=== PATIENT | male | born 1965 | race Caucasian/White ===

== ENCOUNTER 2017-08-12 14:21 | Emergency (ER) | payer OTHER | END 2017-08-12 15:00 | disposition home or self-care (01) | LOC: E/R 15:00 | DX: B34.9 Viral infection, unspecified (principal); H10.9 Unspecified conjunctivitis; J34.89 Other specified disorders of nose and nasal sinuses; I50.9 Heart failure, unspecified; N17.9 Acute kidney failure, unspecified | CPT/HCPCS: 99283 ==

== ENCOUNTER 2018-02-18 21:36 | Emergency (ER) | payer OTHER ==
[2018-02-18] MEDS ORDERED: CEFTRIAXONE 1 GM/50 ML (PMX) 50 ML IVPB (22:30)
[2018-02-18 22:34] LABS: ADD MAN DIFF? NO
[2018-02-18] MEDS: IBUPROFEN 600 MG TAB PO (22:42)
[2018-02-18] MEDS: SOD CHLORIDE 0.9% 1,000 ML IV (22:43)
[2018-02-18 22:44] LABS: WHITE BLOOD COUNT 10.4 10^3/ul (4.8-10.8)
[2018-02-18 22:44] LABS: BASOPHILS % 0.4 % (0.0-2.0); EOSINOPHILS # 0.3 10^3/ul (0.0-0.5); EOSINOPHILS % 3.3 % (0.0-7.0); HEMATOCRIT 42.1 % (42.0-52.0); HEMOGLOBIN 14.1 g/dl (14.0-18.0); LYMPHOCYTES # 1.4 10^3/ul (0.8-2.9); LYMPHOCYTES % 13.1 % (15.0-51.0); MEAN CORPUSCULAR HEMOGLOBIN 31.6 pg (29.0-33.0); MEAN CORPUSCULAR HGB CONC 33.5 g/dl (32.0-37.0); MEAN CORPUSCULAR VOLUME 94.4 fl (82.0-101.0); MEAN PLATELET VOLUME 9.6 fl (7.4-10.4); MONOCYTE # 1.1 10^3/ul (0.3-0.9); MONOCYTES % 10.3 % (0.0-11.0); NEUTROPHIL # 7.5 10^3/ul (1.6-7.5); PLATELET COUNT 281 10^3/UL (140-415); RED BLOOD COUNT 4.46 10^6/ul (4.70-6.10); RED CELL DISTRIBUTION WIDTH 13.2 % (11.5-14.5)
[2018-02-18] MEDS: CEFTRIAXONE 2 GM/50 ML (PMX) 50 ML IVPB (22:51)
[2018-02-18 22:57] LABS: LACTIC ACID 0.9 mmol/L (0.5-2.0)
[2018-02-18 22:59] LABS: ALANINE AMINOTRANSFERASE 40 IU/L (13-69); ALBUMIN 3.5 g/dl (3.3-4.9); ALBUMIN/GLOBULIN RATIO 0.85; ALKALINE PHOSPHATASE 109 IU/L (42-121); ANION GAP 8 (5-13); ASPARTATE AMINO TRANSFERASE 34 IU/L (15-46); BILIRUBIN,INDIRECT 2.1 mg/dl (0-1.1); BILIRUBIN,TOTAL 2.1 mg/dl (0.2-1.3); BLOOD UREA NITROGEN 26 mg/dl (7-20); CALCIUM 9.4 mg/dl (8.4-10.2); CARBON DIOXIDE 25 mmol/L (21-31); CHLORIDE 105 mmol/L (97-110); CREATININE 1.62 mg/dl (0.61-1.24); GLUCOSE 96 mg/dl (70-220); LIPASE 77 U/L (23-300); POTASSIUM 4.6 mmol/L (3.5-5.1); SODIUM 138 mmol/L (135-144); TOTAL PROTEIN 7.6 g/dl (6.1-8.1)
== END 2018-02-18 23:45 | disposition home or self-care (01) ==
LOC: E/R 21:36
DX: L03.317 Cellulitis of buttock (principal); E66.01 Morbid (severe) obesity due to excess calories
CPT/HCPCS: 36415; 80053; 83605; 83690; 85025; 96374; 99284-25

== ENCOUNTER 2018-03-02 09:57 | Emergency (ER) | payer OTHER ==
[2018-03-02 11:16] LABS: ADD MAN DIFF? NO
[2018-03-02 11:18] LABS: BASOPHIL # 0.1 10^3/ul (0.0-0.1); BASOPHILS % 0.7 % (0.0-2.0); EOSINOPHILS # 0.3 10^3/ul (0.0-0.5); EOSINOPHILS % 1.8 % (0.0-7.0); HEMATOCRIT 42.6 % (42.0-52.0); HEMOGLOBIN 14.4 g/dl (14.0-18.0); LYMPHOCYTES # 1.1 10^3/ul (0.8-2.9); LYMPHOCYTES % 6.8 % (15.0-51.0); MEAN CORPUSCULAR HEMOGLOBIN 31.5 pg (29.0-33.0); MEAN CORPUSCULAR HGB CONC 33.8 g/dl (32.0-37.0); MEAN CORPUSCULAR VOLUME 93.2 fl (82.0-101.0); MEAN PLATELET VOLUME 9.1 fl (7.4-10.4); MONOCYTE # 1.4 10^3/ul (0.3-0.9); MONOCYTES % 9.4 % (0.0-11.0); NEUTROPHIL # 12.3 10^3/ul (1.6-7.5); NEUTROPHILS % 80.1 % (39.0-77.0); PLATELET COUNT 351 10^3/UL (140-415); RED BLOOD COUNT 4.57 10^6/ul (4.70-6.10); RED CELL DISTRIBUTION WIDTH 13.3 % (11.5-14.5)
[2018-03-02 11:18] LABS: WHITE BLOOD COUNT 15.3 10^3/ul (4.8-10.8)
[2018-03-02] MEDS: PIPER-TAZO 3.375 GM IV (PMX) 100 ML IVPB (11:22)
[2018-03-02] MEDS: FENTAnyl 50 MCG/ML VIAL IV (11:22)
[2018-03-02] MEDS: ONDANSETRON 4 MG INJ IV (11:22)
[2018-03-02 11:40] LABS: LACTIC ACID 1.9 mmol/L (0.5-2.0)
[2018-03-02 11:41] LABS: ANION GAP 12 (5-13); CARBON DIOXIDE 19 mmol/L (21-31); CHLORIDE 109 mmol/L (97-110); Estimated GFR 19 mL/min (>60); POTASSIUM 5.2 mmol/L (3.5-5.1); SODIUM 140 mmol/L (135-144)
[2018-03-02 11:44] LABS: ALANINE AMINOTRANSFERASE 55 IU/L (13-69); ALBUMIN 3.8 g/dl (3.3-4.9); ALBUMIN/GLOBULIN RATIO 0.92; ALKALINE PHOSPHATASE 134 IU/L (42-121); ASPARTATE AMINO TRANSFERASE 46 IU/L (15-46); BILIRUBIN,INDIRECT 1.1 mg/dl (0-1.1); BILIRUBIN,TOTAL 1.1 mg/dl (0.2-1.3); BLOOD UREA NITROGEN 52 mg/dl (7-20); CALCIUM 9.2 mg/dl (8.4-10.2); CREATININE 3.43 mg/dl (0.61-1.24); GLUCOSE 101 mg/dl (70-220); TOTAL PROTEIN 7.9 g/dl (6.1-8.1)
[2018-03-02 11:45] LABS: INR 1.16; PT RATIO 1.2
[2018-03-02 11:46] LABS: PARTIAL THROMBOPLASTIN TIME 30.7 Sec (23.0-35.0)
[2018-03-02] MEDS: VANCOMYCIN 1 GM (PMX) 250 ML IVPB (12:37)
== END 2018-03-02 15:22 | disposition home or self-care (01) ==
LOC: E/R 15:22
DX: L03.317 Cellulitis of buttock (principal); I50.9 Heart failure, unspecified; M79.662 Pain in left lower leg
CPT/HCPCS: 80053; 83605; 85025; 85610; 85730; 87040; 93005; 96374; 96375; 99284-25

== ENCOUNTER 2018-03-03 16:11 | Inpatient (IN) | payer OTHER ==
[2018-03-03] MEDS ORDERED: ONDANSETRON 4 MG INJ IV (18:30)
[2018-03-03] MEDS ORDERED: MAGNESIUM HYDROXIDE 30ML CUP PO (18:30)
[2018-03-03] MEDS ORDERED: VANCOMYCIN IV PER PHARMACY XX (18:30)
[2018-03-03] MEDS ORDERED: NACL 0.9% 3 ML SYG IV (18:30)
[2018-03-03] MEDS: SOD CHLORIDE 0.9% 1,000 ML IV ×2 (19:58→21:00)
[2018-03-03] MEDS: morphine 2 MG INJ IV (22:10)
[2018-03-04] MEDS: morphine 2 MG INJ IV ×5 (00:50→23:04)
[2018-03-04 05:53] LABS: WHITE BLOOD COUNT 8.7 10^3/ul (4.8-10.8)
[2018-03-04 05:53] LABS: ADD MAN DIFF? NO; BASOPHIL # 0.1 10^3/ul (0.0-0.1); EOSINOPHILS # 0.4 10^3/ul (0.0-0.5); EOSINOPHILS % 4.6 % (0.0-7.0); HEMATOCRIT 38.6 % (42.0-52.0); HEMOGLOBIN 12.6 g/dl (14.0-18.0); LYMPHOCYTES # 1.6 10^3/ul (0.8-2.9); LYMPHOCYTES % 18.1 % (15.0-51.0); MEAN CORPUSCULAR HEMOGLOBIN 31.6 pg (29.0-33.0); MEAN CORPUSCULAR HGB CONC 32.6 g/dl (32.0-37.0); MEAN CORPUSCULAR VOLUME 96.7 fl (82.0-101.0); MEAN PLATELET VOLUME 9.3 fl (7.4-10.4); MONOCYTE # 1.1 10^3/ul (0.3-0.9); MONOCYTES % 12.2 % (0.0-11.0); NEUTROPHIL # 5.4 10^3/ul (1.6-7.5); NEUTROPHILS % 62.4 % (39.0-77.0); PLATELET COUNT 358 10^3/UL (140-415); RED BLOOD COUNT 3.99 10^6/ul (4.70-6.10); RED CELL DISTRIBUTION WIDTH 13.9 % (11.5-14.5)
[2018-03-04 06:20] LABS: ALANINE AMINOTRANSFERASE 51 IU/L (13-69); ALBUMIN 3.1 g/dl (3.3-4.9); ALBUMIN/GLOBULIN RATIO 0.88; ALKALINE PHOSPHATASE 97 IU/L (42-121); ANION GAP 7 (5-13); ASPARTATE AMINO TRANSFERASE 48 IU/L (15-46); BILIRUBIN,INDIRECT 0.4 mg/dl (0-1.1); BILIRUBIN,TOTAL 0.4 mg/dl (0.2-1.3); BLOOD UREA NITROGEN 49 mg/dl (7-20); CALCIUM 8.6 mg/dl (8.4-10.2); CARBON DIOXIDE 21 mmol/L (21-31); CHLORIDE 115 mmol/L (97-110); CREATININE 3.14 mg/dl (0.61-1.24); Estimated GFR 21 mL/min (>60); GLUCOSE 78 mg/dl (70-220); MAGNESIUM 2.4 mg/dl (1.7-2.5); PHOSPHORUS 5.4 mg/dl (2.5-4.9); POTASSIUM 5.3 mmol/L (3.5-5.1); SODIUM 143 mmol/L (135-144); TOTAL PROTEIN 6.6 g/dl (6.1-8.1)
[2018-03-04 06:42] LABS: LACTIC ACID 0.9 mmol/L (0.5-2.0)
[2018-03-04 07:08] LABS: HEMOGLOBIN A1C 5.1 % (0-5.9)
[2018-03-04] MEDS: HYDROCODONE/APAP (5/325) TAB PO (07:48)
[2018-03-04 08:30] LABS: VANCOMYCIN,RANDOM 9.1 ug/ml
[2018-03-04] MEDS: AMIODARONE 200 MG TAB PO (08:48)
[2018-03-04] MEDS: SOD CHLORIDE 0.9% 1,000 ML IV ×2 (11:36→20:46)
[2018-03-04] MEDS: CEFTRIAXONE 1 GM/50 ML (PMX) 50 ML IVPB (11:40)
[2018-03-04] MEDS: VANCOMYCIN 1 GM 250 ML IVPB (13:08)
[2018-03-04 20:54] LABS: ADD UMIC NO; UR ASCORBIC ACID NEGATIVE (NEGATIVE); UR BILIRUBIN (Dip) NEGATIVE (NEGATIVE); UR BLOOD (Dip) NEGATIVE (NEGATIVE); UR CLARITY CLEAR (CLEAR); UR COLOR YELLOW (YELLOW); UR GLUCOSE (Dip) NEGATIVE (NEGATIVE); UR KETONES (Dip) NEGATIVE (NEGATIVE); UR LEUKOCYTE ESTERASE (Dip) NEGATIVE Leu/ul (NEGATIVE); UR NITRITE (Dip) NEGATIVE (NEGATIVE); UR SPECIFIC GRAVITY (Dip) 1.013 (1.003-1.030); UR TOTAL PROTEIN (Dip) NEGATIVE (NEGATIVE); UR UROBILINOGEN (Dip) NEGATIVE (NEGATIVE)
[2018-03-04 21:06] LABS: SODIUM,URINE RANDOM 121 mmol/L (30-90)
[2018-03-04 21:06] LABS: CREATININE,URINE RANDOM 75.74 mg/dl (20-370)
[2018-03-05] MEDS: SOD CHLORIDE 0.9% 1,000 ML IV ×3 (04:56→23:05)
[2018-03-05 05:18] LABS: ADD MAN DIFF? NO
[2018-03-05 05:23] LABS: BASOPHIL # 0.1 10^3/ul (0.0-0.1); BASOPHILS % 1.3 % (0.0-2.0); EOSINOPHILS # 0.5 10^3/ul (0.0-0.5); EOSINOPHILS % 6.5 % (0.0-7.0); HEMATOCRIT 41.8 % (42.0-52.0); HEMOGLOBIN 13.4 g/dl (14.0-18.0); LYMPHOCYTES # 1.6 10^3/ul (0.8-2.9); LYMPHOCYTES % 20.6 % (15.0-51.0); MEAN CORPUSCULAR HEMOGLOBIN 31.2 pg (29.0-33.0); MEAN CORPUSCULAR HGB CONC 32.1 g/dl (32.0-37.0); MEAN CORPUSCULAR VOLUME 97.4 fl (82.0-101.0); MEAN PLATELET VOLUME 8.9 fl (7.4-10.4); MONOCYTE # 0.7 10^3/ul (0.3-0.9); MONOCYTES % 8.4 % (0.0-11.0); NEUTROPHIL # 4.7 10^3/ul (1.6-7.5); NEUTROPHILS % 59.3 % (39.0-77.0); PLATELET COUNT 347 10^3/UL (140-415); RED BLOOD COUNT 4.29 10^6/ul (4.70-6.10); RED CELL DISTRIBUTION WIDTH 13.7 % (11.5-14.5)
[2018-03-05 05:50] LABS: ANION GAP 6 (5-13); BLOOD UREA NITROGEN 32 mg/dl (7-20); CALCIUM 9.2 mg/dl (8.4-10.2); CARBON DIOXIDE 26 mmol/L (21-31); CHLORIDE 111 mmol/L (97-110); CREATININE 2.22 mg/dl (0.61-1.24); Estimated GFR 31 mL/min (>60); GLUCOSE 86 mg/dl (70-220); MAGNESIUM 2.2 mg/dl (1.7-2.5); PHOSPHORUS 4.1 mg/dl (2.5-4.9); SODIUM 143 mmol/L (135-144)
[2018-03-05] MEDS: AMIODARONE 200 MG TAB PO (08:34)
[2018-03-05] MEDS: NA POLYST SULFON 15 GM/60 ML BTL PO ×2 (08:36→14:28)
[2018-03-05] MEDS: morphine 2 MG INJ IV (08:53)
[2018-03-05] MEDS: CEFTRIAXONE 1 GM/50 ML (PMX) 50 ML IVPB (09:44)
[2018-03-05] MEDS: VANCOMYCIN 1.5 GM in SOD CHLORIDE 0.9% 250 ML IVPB (11:26)
[2018-03-05] MEDS: HYDROCODONE/APAP (5/325) TAB PO ×2 (13:32→20:05)
[2018-03-05 13:52] LABS: ANION GAP 10 (5-13); BLOOD UREA NITROGEN 25 mg/dl (7-20); CALCIUM 8.9 mg/dl (8.4-10.2); CARBON DIOXIDE 19 mmol/L (21-31); CHLORIDE 112 mmol/L (97-110); CREATININE 1.71 mg/dl (0.61-1.24); Estimated GFR 42 mL/min (>60); GLUCOSE 96 mg/dl (70-220); POTASSIUM 5.5 mmol/L (3.5-5.1); SODIUM 141 mmol/L (135-144)
[2018-03-06 06:00] LABS: ADD MAN DIFF? NO
[2018-03-06 06:01] LABS: BASOPHIL # 0.1 10^3/ul (0.0-0.1); BASOPHILS % 1.2 % (0.0-2.0); EOSINOPHILS # 0.5 10^3/ul (0.0-0.5); EOSINOPHILS % 5.9 % (0.0-7.0); HEMATOCRIT 39.9 % (42.0-52.0); LYMPHOCYTES # 1.6 10^3/ul (0.8-2.9); LYMPHOCYTES % 18.8 % (15.0-51.0); MEAN CORPUSCULAR HEMOGLOBIN 31.6 pg (29.0-33.0); MEAN CORPUSCULAR HGB CONC 32.6 g/dl (32.0-37.0); MEAN CORPUSCULAR VOLUME 97.1 fl (82.0-101.0); MEAN PLATELET VOLUME 8.7 fl (7.4-10.4); MONOCYTE # 0.7 10^3/ul (0.3-0.9); MONOCYTES % 8.3 % (0.0-11.0); NEUTROPHIL # 5.1 10^3/ul (1.6-7.5); NEUTROPHILS % 62.1 % (39.0-77.0); PLATELET COUNT 311 10^3/UL (140-415); RED BLOOD COUNT 4.11 10^6/ul (4.70-6.10); RED CELL DISTRIBUTION WIDTH 13.5 % (11.5-14.5)
[2018-03-06 06:01] LABS: WHITE BLOOD COUNT 8.3 10^3/ul (4.8-10.8)
[2018-03-06 06:33] LABS: ANION GAP 7 (5-13); BLOOD UREA NITROGEN 21 mg/dl (7-20); CALCIUM 8.6 mg/dl (8.4-10.2); CARBON DIOXIDE 26 mmol/L (21-31); CHLORIDE 110 mmol/L (97-110); Estimated GFR 49 mL/min (>60); GLUCOSE 91 mg/dl (70-220); MAGNESIUM 1.7 mg/dl (1.7-2.5); PHOSPHORUS 3.6 mg/dl (2.5-4.9); POTASSIUM 5.1 mmol/L (3.5-5.1); SODIUM 143 mmol/L (135-144)
[2018-03-06] MEDS: AMIODARONE 200 MG TAB PO (09:07)
[2018-03-06] MEDS: CEFTRIAXONE 1 GM/50 ML (PMX) 50 ML IVPB (10:17)
[2018-03-06] MEDS: HYDROCODONE/APAP (5/325) TAB PO ×2 (10:39→16:50)
[2018-03-06] MEDS: VANCOMYCIN 1.5 GM in SOD CHLORIDE 0.9% 250 ML IVPB (11:45)
[2018-03-06] MEDS: SOD CHLORIDE 0.9% 1,000 ML IV (11:56)
[2018-03-07] MEDS: SOD CHLORIDE 0.9% 1,000 ML IV ×2 (04:01→15:32)
[2018-03-07 05:35] LABS: ADD MAN DIFF? NO
[2018-03-07 05:39] LABS: WHITE BLOOD COUNT 8.4 10^3/ul (4.8-10.8)
[2018-03-07 05:39] LABS: BASOPHIL # 0.1 10^3/ul (0.0-0.1); EOSINOPHILS # 0.4 10^3/ul (0.0-0.5); HEMATOCRIT 40.7 % (42.0-52.0); LYMPHOCYTES # 1.6 10^3/ul (0.8-2.9); LYMPHOCYTES % 18.9 % (15.0-51.0); MEAN CORPUSCULAR HEMOGLOBIN 30.8 pg (29.0-33.0); MEAN CORPUSCULAR HGB CONC 31.9 g/dl (32.0-37.0); MEAN CORPUSCULAR VOLUME 96.4 fl (82.0-101.0); MEAN PLATELET VOLUME 8.9 fl (7.4-10.4); MONOCYTE # 0.7 10^3/ul (0.3-0.9); MONOCYTES % 7.9 % (0.0-11.0); NEUTROPHIL # 5.4 10^3/ul (1.6-7.5); NEUTROPHILS % 64.2 % (39.0-77.0); PLATELET COUNT 314 10^3/UL (140-415); RED BLOOD COUNT 4.22 10^6/ul (4.70-6.10); RED CELL DISTRIBUTION WIDTH 13.2 % (11.5-14.5)
[2018-03-07 06:06] LABS: ANION GAP 8 (5-13); BLOOD UREA NITROGEN 17 mg/dl (7-20); CALCIUM 8.4 mg/dl (8.4-10.2); CARBON DIOXIDE 24 mmol/L (21-31); CHLORIDE 111 mmol/L (97-110); CREATININE 1.42 mg/dl (0.61-1.24); Estimated GFR 52 mL/min (>60); GLUCOSE 92 mg/dl (70-220); MAGNESIUM 1.7 mg/dl (1.7-2.5); PHOSPHORUS 3.5 mg/dl (2.5-4.9); POTASSIUM 4.7 mmol/L (3.5-5.1); SODIUM 143 mmol/L (135-144)
[2018-03-07] MEDS: AMIODARONE 200 MG TAB PO (08:09)
[2018-03-07] MEDS: CEFTRIAXONE 1 GM/50 ML (PMX) 50 ML IVPB (10:38)
[2018-03-07 11:33] LABS: VANCOMYCIN,TROUGH 8.3 ug/ml (10.0-20.0)
[2018-03-07] MEDS: VANCOMYCIN 1.5 GM in SOD CHLORIDE 0.9% 250 ML IVPB (12:00)
== END 2018-03-07 16:20 | disposition home or self-care (01) | DRG 872 ==
LOC: 2NE 16:11
PROC: 5A09457 Assistance with Respiratory Ventilation, 24-96 Consecutive Hours, Continuous Positive Airway Pressure (ICD-10-PCS; principal; 2018-03-03)
DX: A41.9 Sepsis, unspecified organism (principal); L03.317 Cellulitis of buttock; N17.9 Acute kidney failure, unspecified; Z68.42 Body mass index [BMI] 45.0-49.9, adult; I13.0 Hypertensive heart and chronic kidney disease with heart failure and stage 1 through stage 4 chronic kidney disease, or unspecified chronic kidney disease; R65.20 Severe sepsis without septic shock; E66.01 Morbid (severe) obesity due to excess calories; G47.33 Obstructive sleep apnea (adult) (pediatric); E87.5 Hyperkalemia; N18.9 Chronic kidney disease, unspecified; I50.9 Heart failure, unspecified; Z71.3 Dietary counseling and surveillance
CPT/HCPCS: 80048; 80053; 80202; 81003; 82540; 83036; 83605; 83735; 84100; 84155; 84300; 85025; 87040; 87070; 90686; 94660

== ENCOUNTER 2018-07-09 23:14 | Inpatient (IN) | payer OTHER ==
[2018-07-10] MEDS: SOD CHLORIDE 0.9% 1,000 ML IV ×2 (03:55→04:21)
[2018-07-10] MEDS: SODIUM CHLORIDE 0.9% 1L BAG IV* (04:21)
[2018-07-10] MEDS: ONDANSETRON 4 MG INJ IV ×3 (04:21→09:45)
[2018-07-10] MEDS: morphine 4 MG/ML VIAL IV (04:22)
[2018-07-10] MEDS: CEFEPIME 2GM/50 ML (PMX) 50 ML IVPB (04:25)
[2018-07-10 04:34] LABS: ADD MAN DIFF? NO
[2018-07-10 04:35] LABS: WHITE BLOOD COUNT 14.2 10^3/ul (4.8-10.8)
[2018-07-10 04:35] LABS: BASOPHIL # 0.1 10^3/ul (0.0-0.1); BASOPHILS % 0.4 % (0.0-2.0); EOSINOPHILS % 0.1 % (0.0-7.0); HEMOGLOBIN 14.9 g/dl (14.0-18.0); LYMPHOCYTES # 1.2 10^3/ul (0.8-2.9); LYMPHOCYTES % 8.1 % (15.0-51.0); MEAN CORPUSCULAR HEMOGLOBIN 31.9 pg (29.0-33.0); MEAN CORPUSCULAR HGB CONC 33.1 g/dl (32.0-37.0); MEAN CORPUSCULAR VOLUME 96.4 fl (82.0-101.0); MEAN PLATELET VOLUME 9.7 fl (7.4-10.4); MONOCYTE # 1.4 10^3/ul (0.3-0.9); MONOCYTES % 9.9 % (0.0-11.0); NEUTROPHIL # 11.5 10^3/ul (1.6-7.5); NEUTROPHILS % 80.9 % (39.0-77.0); PLATELET COUNT 254 10^3/UL (140-415); RED BLOOD COUNT 4.67 10^6/ul (4.70-6.10); RED CELL DISTRIBUTION WIDTH 12.5 % (11.5-14.5)
[2018-07-10 04:52] LABS: ALANINE AMINOTRANSFERASE 31 IU/L (13-69); ALBUMIN 3.8 g/dl (3.3-4.9); ALBUMIN/GLOBULIN RATIO 1.18; ALKALINE PHOSPHATASE 71 IU/L (42-121); ANION GAP 15 (5-13); ASPARTATE AMINO TRANSFERASE 32 IU/L (15-46); BILIRUBIN,INDIRECT 2.2 mg/dl (0-1.1); BILIRUBIN,TOTAL 2.2 mg/dl (0.2-1.3); BLOOD UREA NITROGEN 39 mg/dl (7-20); CALCIUM 9.2 mg/dl (8.4-10.2); CARBON DIOXIDE 24 mmol/L (21-31); CHLORIDE 102 mmol/L (97-110); CREATININE 2.51 mg/dl (0.61-1.24); Estimated GFR 27 mL/min (>60); GLUCOSE 95 mg/dl (70-220); LIPASE 68 U/L (23-300); POTASSIUM 4.5 mmol/L (3.5-5.1); SODIUM 141 mmol/L (135-144)
[2018-07-10 04:54] LABS: INR 1.13; PROTIME 14.6 Sec (11.9-14.9); PT RATIO 1.1
[2018-07-10 04:55] LABS: PARTIAL THROMBOPLASTIN TIME 31.5 Sec (23.0-35.0)
[2018-07-10 05:01] LABS: TROPONIN-I 0.013 ng/ml (0.000-0.120)
[2018-07-10] MEDS: VANCOMYCIN 1 GM (PMX) 250 ML IVPB (05:27)
[2018-07-10 05:34] LABS: ADD UMIC YES; UR ASCORBIC ACID NEGATIVE (NEGATIVE); UR BILIRUBIN (Dip) NEGATIVE (NEGATIVE); UR BLOOD (Dip) NEGATIVE (NEGATIVE); UR CLARITY SLIGHTLY CLOUDY (CLEAR); UR COLOR AMBER (YELLOW); UR GLUCOSE (Dip) NEGATIVE (NEGATIVE); UR KETONES (Dip) NEGATIVE (NEGATIVE); UR LEUKOCYTE ESTERASE (Dip) NEGATIVE Leu/ul (NEGATIVE); UR MUCUS FEW /HPF (NONE SEEN); UR NITRITE (Dip) NEGATIVE (NEGATIVE); UR RBC 2 /HPF (0-5); UR SPECIFIC GRAVITY (Dip) 1.017 (1.003-1.030); UR TOTAL PROTEIN (Dip) 1+ mg/dl (NEGATIVE); UR UROBILINOGEN (Dip) 2+ mg/dL (NEGATIVE); UR WBC 3 /HPF (0-5)
[2018-07-10] MEDS: IPRATROPIUM (NEB) 0.5 MG/2.5 ML AMP NEB (06:13)
[2018-07-10] MEDS: ALBUTEROL 0.083% (NEB) 2.5 MG/3 ML AMP NEB (06:13)
[2018-07-10] MEDS: FUROSEMIDE 40 MG INJ IV (06:58)
[2018-07-10] MEDS: ACETAMINOPHEN 325 MG TAB PO (06:58)
[2018-07-10] MEDS ORDERED: NACL 0.9% 3 ML SYG IV (07:00)
[2018-07-10] MEDS ORDERED: VANCOMYCIN IV PER PHARMACY XX (07:00)
[2018-07-10] MEDS ORDERED: LEVALBUTEROL (NEB) 1.25 MG/0.5 ML AMP HHN (07:00)
[2018-07-10] MEDS ORDERED: DOCUSATE SODIUM 100 MG CAP PO (07:00)
[2018-07-10] MEDS ORDERED: HYDROCODONE/APAP (5/325) TAB PO (07:00)
[2018-07-10] MEDS ORDERED: EPHEDrine SULFATE 50 MG/5 ML SYG (07:00)
[2018-07-10] MEDS ORDERED: BISACODYL (EC) 5 MG TAB PO (07:00)
[2018-07-10 07:43] LABS: SODIUM,URINE RANDOM 17 mmol/L (30-90)
[2018-07-10 08:56] LABS: LACTIC ACID 2.2 mmol/L (0.5-2.0)
[2018-07-10] MEDS: AMIODARONE 200 MG TAB PO (09:00)
[2018-07-10] MEDS: PIPER-TAZO 2.25 GM (PMX) 50 ML IVPB ×2 (10:13→21:00)
[2018-07-10 11:58] LABS: ANION GAP 11 (5-13); BLOOD UREA NITROGEN 41 mg/dl (7-20); CALCIUM 7.9 mg/dl (8.4-10.2); CARBON DIOXIDE 19 mmol/L (21-31); CHLORIDE 110 mmol/L (97-110); CREATININE 2.96 mg/dl (0.61-1.24); Estimated GFR 22 mL/min (>60); GLUCOSE 81 mg/dl (70-220); POTASSIUM 4.3 mmol/L (3.5-5.1); SODIUM 140 mmol/L (135-144)
[2018-07-10] MEDS ORDERED: FENTAnyl 50 MCG/ML VIAL (12:21)
[2018-07-10] MEDS ORDERED: MIDAZOLAM 1 MG/ML 2 ML INJ ×2 (12:21→12:45)
[2018-07-10] MEDS ORDERED: KETOROLAC 30 MG INJ (12:47)
[2018-07-10] MEDS ORDERED: METOCLOPRAMIDE 10 MG INJ (12:47)
[2018-07-10] MEDS ORDERED: DEXAMETHASONE 4 MG/ML 5 ML INJ (12:47)
[2018-07-10] MEDS ORDERED: ONDANSETRON 4 MG INJ (12:47)
[2018-07-10] MEDS ORDERED: PHENYLephrine (100 MCG/ML) 5ML SYG (12:49)
[2018-07-10] MEDS ORDERED: OXYCODONE/ACETAMINOPHEN (5/325) TAB PO ×2 (13:00)
[2018-07-10] MEDS ORDERED: ONDANSETRON 4 MG INJ IV (13:00)
[2018-07-10] MEDS ORDERED: morphine 2 MG INJ IV (13:00)
[2018-07-10] MEDS: ALBUMIN HUMAN 5% 250 ML IV (14:15)
[2018-07-10 15:57] LABS: CREATININE,URINE RANDOM 115.69 mg/dl (20-370)
[2018-07-10 15:57] LABS: SODIUM,URINE RANDOM 85 mmol/L (30-90)
[2018-07-10] MEDS: VANCOMYCIN HCL 2 GM in SOD CHLORIDE 0.9% 500 ML IVPB (20:22)
[2018-07-11] MEDS: PIPER-TAZO 2.25 GM (PMX) 50 ML IVPB (03:02)
[2018-07-11 05:14] LABS: ADD MAN DIFF? NO
[2018-07-11 05:15] LABS: ABNORMAL IP MESSAGE 1; BASOPHILS % 0.3 % (0.0-2.0); HEMATOCRIT 37.3 % (42.0-52.0); HEMOGLOBIN 12.2 g/dl (14.0-18.0); LYMPHOCYTES # 0.5 10^3/ul (0.8-2.9); LYMPHOCYTES % 3.7 % (15.0-51.0); MEAN CORPUSCULAR HEMOGLOBIN 32.2 pg (29.0-33.0); MEAN CORPUSCULAR HGB CONC 32.7 g/dl (32.0-37.0); MEAN CORPUSCULAR VOLUME 98.4 fl (82.0-101.0); MEAN PLATELET VOLUME 10.2 fl (7.4-10.4); MONOCYTE # 0.9 10^3/ul (0.3-0.9); MONOCYTES % 6.2 % (0.0-11.0); NEUTROPHIL # 12.8 10^3/ul (1.6-7.5); NEUTROPHILS % 88.4 % (39.0-77.0); PLATELET COUNT 197 10^3/UL (140-415); POSITIVE DIFF @See below; RED BLOOD COUNT 3.79 10^6/ul (4.70-6.10); RED CELL DISTRIBUTION WIDTH 12.8 % (11.5-14.5)
[2018-07-11 05:15] LABS: WHITE BLOOD COUNT 14.4 10^3/ul (4.8-10.8)
[2018-07-11 05:33] LABS: ALANINE AMINOTRANSFERASE 34 IU/L (13-69); ALBUMIN 3.2 g/dl (3.3-4.9); ALBUMIN/GLOBULIN RATIO 0.96; ALKALINE PHOSPHATASE 68 IU/L (42-121); ANION GAP 10 (5-13); ASPARTATE AMINO TRANSFERASE 75 IU/L (15-46); BILIRUBIN,INDIRECT 0.7 mg/dl (0-1.1); BILIRUBIN,TOTAL 0.7 mg/dl (0.2-1.3); BLOOD UREA NITROGEN 38 mg/dl (7-20); CALCIUM 8.1 mg/dl (8.4-10.2); CARBON DIOXIDE 22 mmol/L (21-31); CHLORIDE 110 mmol/L (97-110); CHOLESTEROL 140 mg/dl (100-200); CREATININE 2.25 mg/dl (0.61-1.24); Estimated GFR 31 mL/min (>60); GLUCOSE 204 mg/dl (70-220); HDL CHOLESTEROL 28 mg/dl (28-71); LDL CHOLESTEROL,CALCULATED 99 mg/dl; MAGNESIUM 2.1 mg/dl (1.7-2.5); POTASSIUM 4.8 mmol/L (3.5-5.1); SODIUM 142 mmol/L (135-144); TOTAL PROTEIN 6.5 g/dl (6.1-8.1); TRIGLYCERIDES 66 mg/dl (0-149)
[2018-07-11 05:44] LABS: ANION GAP 11 (5-13); BLOOD UREA NITROGEN 38 mg/dl (7-20); CARBON DIOXIDE 22 mmol/L (21-31); CHLORIDE 109 mmol/L (97-110); CREATININE 2.24 mg/dl (0.61-1.24); Estimated GFR 31 mL/min (>60); GLUCOSE 207 mg/dl (70-220); PHOSPHORUS 3.8 mg/dl (2.5-4.9); POTASSIUM 4.8 mmol/L (3.5-5.1); SODIUM 142 mmol/L (135-144)
[2018-07-11] MEDS: AMIODARONE 200 MG TAB PO (09:13)
[2018-07-11] MEDS: morphine 2 MG INJ IV (10:10)
[2018-07-11] MEDS ORDERED: DOCUSATE SODIUM 100 MG CAP PO (14:30)
[2018-07-11] MEDS: PIPER-TAZO 3.375 GM IV (PMX) 100 ML IVPB ×2 (16:14→22:39)
[2018-07-11] MEDS: HYDROCODONE/APAP (10/325) TAB PO (19:49)
[2018-07-11] MEDS: VANCOMYCIN HCL 1.75 GM in SOD CHLORIDE 0.9% 500 ML IVPB (23:29)
[2018-07-12 06:04] LABS: ADD MAN DIFF? NO
[2018-07-12 06:08] LABS: WHITE BLOOD COUNT 16.8 10^3/ul (4.8-10.8)
[2018-07-12 06:08] LABS: BASOPHIL # 0.1 10^3/ul (0.0-0.1); BASOPHILS % 0.3 % (0.0-2.0); EOSINOPHILS # 0.1 10^3/ul (0.0-0.5); EOSINOPHILS % 0.4 % (0.0-7.0); HEMATOCRIT 39.4 % (42.0-52.0); HEMOGLOBIN 12.8 g/dl (14.0-18.0); LYMPHOCYTES # 1.1 10^3/ul (0.8-2.9); LYMPHOCYTES % 6.5 % (15.0-51.0); MEAN CORPUSCULAR HEMOGLOBIN 32.1 pg (29.0-33.0); MEAN CORPUSCULAR HGB CONC 32.5 g/dl (32.0-37.0); MEAN CORPUSCULAR VOLUME 98.7 fl (82.0-101.0); MEAN PLATELET VOLUME 10.7 fl (7.4-10.4); MONOCYTE # 1.2 10^3/ul (0.3-0.9); MONOCYTES % 6.8 % (0.0-11.0); NEUTROPHIL # 14.1 10^3/ul (1.6-7.5); NEUTROPHILS % 84.1 % (39.0-77.0); PLATELET COUNT 245 10^3/UL (140-415); RED BLOOD COUNT 3.99 10^6/ul (4.70-6.10)
[2018-07-12 06:41] LABS: ANION GAP 8 (5-13); BLOOD UREA NITROGEN 38 mg/dl (7-20); CALCIUM 8.4 mg/dl (8.4-10.2); CARBON DIOXIDE 24 mmol/L (21-31); CHLORIDE 110 mmol/L (97-110); CREATININE 1.87 mg/dl (0.61-1.24); Estimated GFR 38 mL/min (>60); GLUCOSE 135 mg/dl (70-220); MAGNESIUM 2.3 mg/dl (1.7-2.5); PHOSPHORUS 2.8 mg/dl (2.5-4.9); SODIUM 142 mmol/L (135-144)
[2018-07-12 06:48] LABS: HEMOGLOBIN A1C 5.1 % (0-5.9)
[2018-07-12] MEDS: PIPER-TAZO 3.375 GM IV (PMX) 100 ML IVPB ×2 (07:15→14:11)
[2018-07-12] MEDS: AMIODARONE 200 MG TAB PO (08:41)
[2018-07-12] MEDS: ENOXAPARIN 30 MG/0.3 ML SYG SC (08:45)
[2018-07-12] MEDS: HYDROCODONE/APAP (10/325) TAB PO ×2 (08:47→14:20)
[2018-07-12] MEDS: morphine 2 MG INJ IV ×2 (11:40→16:17)
[2018-07-12 16:36] LABS: CREATININE, RANDOM URINE 447 mg/dL (20-320); MICROALBUMIN 10.3 mg/dL; MICROALBUMIN/CREATININE RATIO 23 (<30)
[2018-07-12] MEDS ORDERED: VANCOMYCIN HCL 1.75 GM in SOD CHLORIDE 0.9% 500 ML IVPB (23:00)
== END 2018-07-12 21:25 | disposition home health service (06) | DRG 872 ==
LOC: FTE 23:14 → REC 07-10 04:24 → MS1 07-10 16:32
PROVIDERS: Family Medicine
PROC: 0D9Q0ZX Drainage of Anus, Open Approach, Diagnostic (ICD-10-PCS; principal; 2018-07-10 11:30)
DX: A41.9 Sepsis, unspecified organism (principal); L02.31 Cutaneous abscess of buttock; Z68.43 Body mass index [BMI] 50.0-59.9, adult; N17.9 Acute kidney failure, unspecified; E87.2 Acidosis; L03.317 Cellulitis of buttock; I13.0 Hypertensive heart and chronic kidney disease with heart failure and stage 1 through stage 4 chronic kidney disease, or unspecified chronic kidney disease; N18.4 Chronic kidney disease, stage 4 (severe); E66.01 Morbid (severe) obesity due to excess calories; I50.9 Heart failure, unspecified; R65.20 Severe sepsis without septic shock; G47.33 Obstructive sleep apnea (adult) (pediatric); B96.1 Klebsiella pneumoniae [K. pneumoniae] as the cause of diseases classified elsewhere; B96.20 Unspecified Escherichia coli [E. coli] as the cause of diseases classified elsewhere; B95.4 Other streptococcus as the cause of diseases classified elsewhere; F12.90 Cannabis use, unspecified, uncomplicated; Z71.3 Dietary counseling and surveillance
CPT/HCPCS: 36415; 71045; 76536; 76775; 80048; 80053; 80061; 81001; 81003; 82043; 83036; 83605; 83690; 83735; 84100; 84155; 84300; 84443; 84484; 85025; 85610; 85730; 87040; 87070; 87075; 87086; 93005; 93306; 94664; 96374; 96375; 99285-25